=== PATIENT | female | born 1970 | race Caucasian/White ===

== ENCOUNTER 2018-08-11 15:31 | Inpatient (IN) ==
[2018-08-11] MEDS ORDERED: CARDIZEM IV ONE (15:53)
--- NOTE | 2018-08-11 15:54 | PROVIDER DOCUMENTATION ---
HPI-Cardiac General - General Chief Complaint: Palpitations Stated Complaint: ABNORMAL EKG Time Seen by Provider: 08/11/18 15:43 Source: patient, family Allergies/Adverse Reactions: Patient Allergies Allergy/AdvReac Type Severity Reaction Status Date / Time ceftriaxone sodium * Allergy Severe ANAPHYLAXIS Verified 01/19/12 16:14 [From Rocephin] metoclopramide HCl * Allergy Severe Unknown Verified 01/19/12 16:14 [From Reglan] ondansetron HCl * Allergy Severe RASH Verified 01/19/12 16:14 [From Zofran] tetracycline [Tetracycline] Allergy Severe NAUSEA/VOMI Verified 01/19/12 16:14 TING hydroxyzine [From Atarax] Allergy ANAPHYLAXIS Verified 08/11/18 15:54 Home Medications: Home Medication List Medication Instructions Recorded Confirmed Last Taken Type Omeprazole [Prilosec] 40 mg PO DAILY 01/19/12 01/19/12 01/15/12 21:00 History - History of Present Illness-Cardiac Nature of Presenting Problem: was sent from Dr. Ellis office for SVT/Afib prior to arrival. she attributes to having some ingestion, and intermittent heart palpitatin and felt her ears congestion. she was on amoxil, tessalon but no OTC cold medicines. otherwise she has history of grave dz. Review of Systems - Adult - REVIEW OF SYSTEMS - ADULT Constitutional: reports: no symptoms reported Eyes: reports: no symptoms reported Ears, Nose, Mouth & Throat: reports: no symptoms reported Cardiovascular: reports: no symptoms reported Respiratory: reports: no symptoms reported Gastrointestinal: reports: no symptoms reported Genitourinary: reports: no symptoms reported Musculoskeletal: reports: no symptoms reported Integumentary: reports: no symptoms reported Neurological: reports: no symptoms reported Psychiatric: reports: no symptoms reported Endocrine: reports: no symptoms reported Hematologic/Lymphatic: reports: no symptoms reported Allergic/Immunologic: reports: no symptoms reported All Other Systems: Reviewed and Negative Past History - Adult - PAST MEDICAL HISTORY-ADULT Review of Records: reports: Old Records Reviewed, Nursing Assessment Review, Medications Reviewed, Social history reviewed & non-contributory. Major Childhood Illnesses: reports: denies history Cardiovascular: reports: denies history Respiratory: reports: denies history Gastrointestinal: reports: denies history Obstetrical/Gynecological: reports: denies history Genitourinary: reports: denies history Musculoskeletal: reports: denies history Neurological: reports: denies history Endocrine/Immune: reports: denies history Other Conditions: reports: denies history - IMMUNIZATION STATUS Childhood Immunizations: See Nurse Assessment Flu Vaccine: See Nurse Assessment - FAMILY HISTORY Family History: reviewed, not pertinent - SOCIAL HISTORY Smoking: denies Substance Use: none/never Living Situation: family Physical Exam-General - PHYSICAL EXAM-ADULT Initial Vital Signs Reviewed: Yes - CONSTITUTIONAL General Appearance: appears well, alert, no apparent distress - EYES Eyes: PERRL/EOMI, pink conjunctivae - HEAD, EARS, NOSE, MOUTH & THROAT HENMT: normocephalic/atraumatic, moist mucous membranes - NECK Neck: non-tender, full range of motion - RESPIRATORY Respiratory: chest non-tender, lungs clear - CARDIOVASCULAR Cardiovascular: normal peripheral pulses, tachycardia (but stable) - GASTROINTESTINAL (ABDOMEN) Abdominal Exam: normal bowel sounds, non tender, soft - MUSCULOSKELETAL Back Exam: normal inspection, no CVA tenderness Extremity: normal range of motion, non-tender, normal gait. negative: swelling - SKIN Integumentary: normal color, normal turgor, warm/dry - NEUROLOGIC Neurologic: grossly normal, no motor/sensory deficits - PSYCHIATRIC Psych/Mental Status: normal mood/affect, normal thought content, normal thought process, oriented x 3 Progress - PLAN OF CARE/RESULTS Progress/Plan/Lab Results: Vital Signs - 8 hr 08/11/18 15:51 Temperature 98.0 F Pulse Rate 156 H Respiratory Rate 20 Blood Pressure 150/120 O2 Sat by Pulse Oximetry 99 Laboratory Results - last 24 hr 08/11/18 08/11/18 08/11/18 15:45 16:04 16:55 WBC 9.43 RBC 5.00 Hgb 13.1 Hct 39.7 MCV 79.4 L MCH 26.2 L MCHC 33.0 RDW Std Deviation 13.7 Plt Count 153 MPV 12.3 H Immature Gran % (Auto) 0.0 Neut % (Auto) 57.4 Lymph % (Auto) 33.8 Lyon % (Auto) 6.8 Eos % (Auto) 1.9 Baso % (Auto) 0.1 Immature Gran # (Auto) 0.00 Neut # (Auto) 5.41 Lymph # (Auto) 3.19 Lyon # (Auto) 0.64 H Eos # (Auto) 0.18 Baso # (Auto) 0.01 PT 13.2 INR 0.92 PTT (Actin FS) 21.3 L D-Dimer, Quantitative 0.92 H Sodium Potassium Chloride Carbon Dioxide Anion Gap BUN Creatinine Estimated GFR/1.73 m2 BUN/Creatinine Ratio Glucose Calculated Osmolality Calcium Total Bilirubin AST ALT Alkaline Phosphatase Total Protein Albumin Globulin Albumin/Globulin Ratio TSH 08/11/18 08/11/18 16:55 16:55 WBC RBC Hgb Hct MCV MCH MCHC RDW Std Deviation Plt Count MPV Immature Gran % (Auto) Neut % (Auto) Lymph % (Auto) Lyon % (Auto) Eos % (Auto) Baso % (Auto) Immature Gran # (Auto) Neut # (Auto) Lymph # (Auto) Lyon # (Auto) Eos # (Auto) Baso # (Auto) PT INR PTT (Actin FS) D-Dimer, Quantitative Sodium 143 Potassium 3.8 Chloride 106 Carbon Dioxide 25 Anion Gap 12 BUN 14 Creatinine 0.5 Estimated GFR/1.73 m2 > 60 BUN/Creatinine Ratio 28 Glucose 108 H Calculated Osmolality 286 Calcium 8.7 L Total Bilirubin 0.42 AST 15 ALT 18 Alkaline Phosphatase 127 H Total Protein 6.4 Albumin 3.8 Globulin 2.6 Albumin/Globulin Ratio 1.5 TSH 0.01 L Orders Category Date Time Status Admit - [facility] Routine AdmDCTranf 08/11/18 18:24 Active CTA [CT ANGIOGRM PULMONARY ARTERIES] [CT] Stat Exams 08/11/18 18:07 Ordered cxr [CHEST-2 VIEWS] [RAD] Stat Exams 08/11/18 15:54 Completed CBC WITH ELECTRONIC DIFF [HEME] Stat Lab 08/11/18 15:45 Completed COMPREHENSIVE METABOLIC PANEL [CHEM] Stat Lab 08/11/18 16:55 Completed D-DIMER [COAG] Stat Lab 08/11/18 16:55 Completed FREE T3 [HH] Stat Lab 08/11/18 18:29 Received FREE T4 Stat Lab 08/11/18 18:17 Received FREE T4 Stat Lab 08/11/18 18:20 Ordered PROTIME WITH INR [COAG] Stat Lab 08/11/18 16:04 Completed PTT [COAG] Stat Lab 08/11/18 16:04 Completed TSH Stat Lab 08/11/18 16:55 Completed Diltiazem 125 mg/D5w [Cardizem 125 mg/D5w] Med 08/11/18 16:15 Active 125 mg in 125 ml IV As Directed mls/hr Diltiazem [Cardizem] Med 08/11/18 15:53 Discontinued 20 mg IV NOW ONE EKG [EKG] Stat Ther 08/11/18 16:13 Draft Transfer/Admit Order [TRANSFER] Routine Transfer 08/11/18 18:29 Ordered Result Diagrams: 08/11/18 15:45 08/11/18 16:55 - REASSESSMENT Reassessment #1 Time Reassessed: 16:53 (s/p cardizem, and drip. slight improving. will admit to ED. ) - CONSULTS/PCP/HOSPITALIST Notification #1 *Consult/PCP/Hospitalist*: Dr. Ellis Time Discussed: 16:53 Consult Disposition: Admit Departure - Departure Date of Disposition Decision: 08/11/18 Time of Disposition Decision: 16:19 DIAGNOSIS: Atrial fibrillation with RVR, Graves' disease, Elevated d-dimer Disposition: ADMITTED INPATIENT 09 Certified Medical Emergency: Emergent Condition: Stable Referrals and Follow-Ups: Elodia Ellis MD [Primary Care Provider] - - Critical Care Note This patient required my direct & personal management of CC.: No Attestation - Physician/ ROSE Attestation The physician spent face to face time with patient:: Yes Advanced Practice Provider documentation review:: Supervising physician onsite and consulted in the evaluation and care of this patient. The physician did have a face to face encounter with the patient.
[2018-08-11] MEDS: CARDIZEM 125 MG/D5W 125 MG/125 ML IVPB IV SCH (16:20)
--- NOTE | 2018-08-11 16:27 | EKG Report ---
Test Performed on : 08/11/2018 3:43:08 PM Test Reason : tachy Blood Pressure : / mmHG Vent. Rate : 168 BPM Atrial Rate : 227 BPM P-R Int : 000 ms QRS Dur : 074 ms QT Int : 292 ms P-R-T Axes : 000 -11 015 degrees QTc Int : 488 ms Atrial fibrillation. with rapid ventricular response. Abnormal ECG No previous ECGs available Unconfirmed Result
[2018-08-11 16:35] LABS: INR 0.92; PROTIME 13.2 Seconds (11.0-16.0)
[2018-08-11 16:36] LABS: PTT 21.3 Seconds (22.3-41.8)
[2018-08-11 17:11] LABS: BASO# 0.01 X1000 (0.0-0.2); BASO% 0.1 % (0.0-0.8); EOS# 0.18 X1000 (0.0-0.7); EOS% 1.9 % (0.0-10.0); HEMATOCRIT 39.7 % (37.0-47.0); HEMOGLOBIN 13.1 g/dL (12.0-16.0); LYMPH# 3.19 X1000 (1.2-3.4); LYMPH% 33.8 % (20.5-51.1); MCH 26.2 PG (27-31); MCV 79.4 FL (81-99); MONO# 0.64 X1000 (0.11-0.59); MONO% 6.8 % (1.7-9.3); MPV 12.3 FL (7.4-10.4); NEUT# 5.41 X1000 (1.4-6.5); NEUT% 57.4 % (42.2-75.2); PLT 153 X1000 (130-400); RDW 13.7 % (11.5-14.5); WBC 9.43 X1000 (4.8-10.8)
[2018-08-11 17:26] LABS: AGAP 12; ALB/GLOB RATIO 1.5; ALBUMIN 3.8 g/dL (3.5-5.0); ALKALINE PHOSPHATASE 127 U/L (32-104); BUN 14 mg/dL (8-22); CALCIUM 8.7 mg/dL (8.8-10.2); CHLORIDE 106 mmol/L (98-107); COSMO 286; CREATININE 0.5 mg/dL (0.5-0.9); ESTIMATED GFR > 60; GLUCOSE 108 mg/dL (70-104); GOT 15 U/L (10-30); GPT 18 U/L (10-36); POTASSIUM 3.8 mmol/L (3.5-5.1); SODIUM 143 mmol/L (136-145); TCO2 25 mmol/L (25-35); TOTAL BILIRUBIN 0.42 mg/dL (0.20-1.00); TOTAL PROTEIN 6.4 g/dL (6.3-8.3)
--- NOTE | 2018-08-11 17:34 | Diag Imaging Result Doc PS360 ---
EXAM: CHEST-2 VIEWS 08/11/2018 HISTORY: heart palpitation TECHNIQUE: Two views COMMENT: There is no evidence of acute cardiac or pulmonary disease. There are no previous studies. There is some accentuation of kyphosis of the lower thoracic spine. IMPRESSION: No evidence of acute disease. Electronically signed by Josh Berry 08/11/2018 5:31 PM
[2018-08-11] MEDS ORDERED: LANOXIN IV ONE ×2 (19:29→20:25)
[2018-08-11] MEDS ORDERED: ZOFRAN IV PRN (19:50)
[2018-08-11] MEDS ORDERED: NS 1,000 ML IV SCH (20:00)
[2018-08-11] MEDS ORDERED: LOVENOX SUBQ SCH (20:00)
[2018-08-11] MEDS ORDERED: SODIUM CHLORIDE 0.9% INJ SCH (20:00)
[2018-08-11] MEDS ORDERED: PEPCID IV SCH (20:00)
--- NOTE | 2018-08-11 20:01 | Diag Imaging Result Doc PS360 ---
EXAM: CT ANGIOGRM PULMONARY ARTERIES 08/11/2018 HISTORY: pe TECHNIQUE: This exam was performed using automated exposure control, adjustment of mA or kV according to patient size, and/or use of iterative reconstruction technique. COMMENT: 3-D MIPS were performed. There are no previous studies. There are no filling defects in the pulmonary arteries. The thoracic aorta is normal in caliber and there is no evidence of dissection. There are small pleural effusions bilaterally. There is retained thymic tissue. There are some prominent aorticopulmonary window nodes. There is increased interstitial markings particularly in the apices and bases, and there are some patchy groundglass opacities present most notably in the right middle lobe around image 86.The regional skeleton is intact. There are splenules in the splenic hilus. There is an apparent small hiatal hernia. IMPRESSION: No evidence of pulmonary emboli. Pulmonary edema and/or pneumonitis. Electronically signed by Josh Brery 08/11/2018 7:58 PM
[2018-08-11] MEDS ORDERED: LOPRESSOR PO SCH (21:00)
[2018-08-11] MEDS ORDERED: METHADONE PO ONE (21:29)
--- NOTE | 2018-08-11 21:48 | HISTORY AND PHYSICAL ---
CHIEF COMPLAINT: Palpitations, chest pressure for the last 1 day. HISTORY OF PRESENT ILLNESS: She is a 48-year-old white female who basically came in with palpitations, chest pain, neck is hurting for the last day. Patient was not seen in my office since 2015. Patient was found to have rapid SVT. I tried modified Valsalva maneuver twice, not able to break through. Patient appears to be little bit short of breath. Transferred to the emergency room. In the ER, patient was given a Cardizem drip. Further workup revealed she was hyperthyroid. The cause of atrial fibrillation was due to hypothyroid, and basically rule out valvular heart disease. Positive D-dimer. CT pulmonary angiogram was negative. Discussed the plan with family at bedside. [facility]. PAST MEDICAL HISTORY: 1. Metabolic syndrome. 2. Reflux disease. 3. History of hyperthyroidism. Normal radioactive uptake, 12/13/2015. Patient has Vincent toxicosis, elevated thyroid peroxidase antibodies, not taking any medications at this time. PAST SURGICAL HISTORY: 1. Appendectomy. 2. Hysterectomy. 3. . MEDICINES: 1. Prilosec. 2. Discontinued losartan. ALLERGIES: Hydroxyzine, Reglan, Rocephin, tetracycline. SOCIAL HISTORY: , 1 child, living in [place]. No smoking. No alcohol. FAMILY HISTORY: Father was 72 years old and with congestive heart failure. Mom is healthy. REVIEW OF SYSTEMS: HEENT: No headache, no vision problem, no earache, no sore throat. Neck: No goiter, no lymphadenopathy, no bruit. Cardiopulmonary: Chest pain. No shortness of breath, PND, orthopnea. No lumps in the breast. GI: No nausea, vomiting, abdominal pain. Extremities: No swelling of feet. No joint pain. Neurologic: No focal symptoms or weakness. PHYSICAL EXAMINATION: VITAL SIGNS: The patient is tachycardic, hypertensive, 93%. HEENT: Within normal limits. No goiter. CHEST: Bilateral air entry. HEART: Sounds are tachycardic. ABDOMEN: Belly is soft, nontender. Good bowel sounds. EXTREMITIES: No peripheral edema, cyanosis. NEUROLOGIC: No obvious neurological deficits. INVESTIGATIONS: CBC: White cell count 9.4, hematocrit 39, platelets 153,000. PT 13, INR 0.9, PTT 21. D-dimer slightly positive. SMA 7 is normal. T4 is high. TSH is low. Cardiac enzymes are pending. EKG: Atrial fibrillation. CT pulmonary angiogram: No evidence of PE. Chest x-ray stable. ASSESSMENT AND PLAN: A 48-year-old white female admitted to the hospital with: 1. New onset of atrial fibrillation due to hypothyroidism. Will also get echocardiography and follow up on cardiac enzymes. D-dimer is positive. CT pulmonary angiogram is negative. 2. Hypothyroidism. Normal radioactive iodine. Not taking any medicine. Her TPO antibodies are high and T4 was high. Repeat TPO antibodies and thyroid receptor antibodies. Will continue intravenous Cardizem, digitalis, metoprolol, and after these tests, patient will be started on methimazole, and will follow up. 3. Deep venous thrombosis and gastrointestinal prophylaxis with Lovenox and Pepcid respectively. cc: Fadi Ellis MD
[2018-08-11] MEDS: LOVENOX SUBQ SCH (22:06)
[2018-08-11] MEDS: PEPCID IV SCH (22:06)
[2018-08-11] MEDS: SODIUM CHLORIDE 0.9% INJ SCH (22:06)
[2018-08-12] MEDS: CARDIZEM 125 MG/D5W 125 MG/125 ML IVPB IV SCH ×2 (00:23→09:34)
[2018-08-12] MEDS ORDERED: LANOXIN IV ONE ×2 (01:30→02:30)
[2018-08-12] MEDS ORDERED: SODIUM CHLORIDE 0.9% INJ PRN (03:33)
[2018-08-12] MEDS ORDERED: PHENERGAN IV PRN (03:33)
[2018-08-12] MEDS: TYLENOL PO PRN (03:48)
[2018-08-12] MEDS ORDERED: TAPAZOLE PO ONE (07:48)
[2018-08-12] MEDS ORDERED: TOPROL XL PO ONE (07:49)
[2018-08-12] MEDS: PEPCID IV SCH ×2 (08:31→21:15)
[2018-08-12] MEDS: SODIUM CHLORIDE 0.9% INJ SCH ×2 (08:32→21:15)
[2018-08-12] MEDS ORDERED: METHADONE PO SCH (09:00)
--- NOTE | 2018-08-12 19:54 | PROGRESS NOTE ---
DATE: 08/12/2018 SUBJECTIVE: The patient is still in atrial fibrillation, exhausted. No chest pain, shortness of breath. She has monitored atrial fibrillation. OBJECTIVE: Vital Signs: Temperature is 98, vitals are stable. HEENT exam: Within normal limits. Chest: Clear, irregular heart sounds. Abdomen: Belly soft, nontender. Good bowel sounds. Neurologic: No neurological deficits. LABS: CBC: White cell count 9.4, hematocrit 39, platelets 153. PT 13. INR 0.92, PTT 21. D- dimer 0.92. Cardiac enzymes were negative. ProBNP 1300. Free T3 is high. T4 is high. TSH is low. It is level 1.2. Thyroid peroxidase antibody is positive. ASSESSMENT AND PLAN: 1. Atrial fibrillation due to hyperthyroidism due to Vincent toxicosis. Positive thyroid peroxidase antibodies. Previous thyroid uptake scan is negative. Pending thyrotropin receptor antibody. Clinically, no Graves disease noted. Plan of care as follows: Cardizem drip slowly wean off. Continue on beta blockers and Tapazole. 2. The patient is at low risk for having strokes. 3. Deep venous thrombosis and gastrointestinal prophylaxis as per order sheet. 4. Will follow up. LEVEL OF DOCUMENTATION: 25 minutes. cc: Fadi Ellis MD
[2018-08-12] MEDS: LOVENOX SUBQ SCH (21:15)
[2018-08-12] MEDS: CARDIZEM PO SCH (21:16)
[2018-08-12] MEDS: TOPROL XL PO SCH (21:16)
--- NOTE | 2018-08-12 22:54 | ECHO REPORT ---
ORDER DATE: 08/11/2018 MEASUREMENTS: Septal thickness 1.1, left ventricular internal diameter diastole 4.7, posterior wall thickness 1.1, left ventricular internal diameter in systole 3.0, left atrium 4.3, aortic root 3.0. SUMMARY: 1. Adequate quality study. 2. Aortic valve is trileaflet and opens normally on 2-dimensional images. Peak gradient across aortic valve is 10 mmHg. Mitral, tricuspid, and pulmonic valves are without evidence of structural abnormality. There is mild mitral regurgitation and mild tricuspid regurgitation. Estimated systolic PA pressure by Doppler is 35 mmHg. Aortic root is normal in size. 3. Normal left ventricular dimensions demonstrated. Estimated left ventricular ejection fraction appears to be at least 65%. No regional wall motion abnormalities are evident. Left atrium is mildly enlarged. The right atrium is borderline enlarged. Right ventricle is normal in size with normal right ventricular systolic function. 4. No pericardial effusion. 5. Appearance of inferior vena cava suggests normal central venous pressure. CONCLUSIONS: 1. Mild mitral regurgitation. 2. Mild tricuspid regurgitation with estimated systolic PA pressure 35 mmHg. 3. Estimated left ejection fraction at least 65%. 4. Mild left atrial enlargement and borderline right atrial enlargement. cc: MD Fadi Bean MD
[2018-08-13] MEDS: TYLENOL PO PRN (00:09)
[2018-08-13] MEDS: CARDIZEM PO SCH (05:10)
[2018-08-13] MEDS: TOPROL XL PO SCH ×3 (07:31→20:56)
[2018-08-13] MEDS: SODIUM CHLORIDE 0.9% INJ SCH (07:33)
[2018-08-13] MEDS: PEPCID IV SCH (07:33)
[2018-08-13] MEDS: PRILOSEC PO PRN ×2 (08:24→21:01)
[2018-08-13] MEDS ORDERED: TAPAZOLE PO SCH (09:00)
--- NOTE | 2018-08-13 09:39 | PROGRESS NOTE ---
DATE: 08/13/2018 48-year-old, white female patient admitted with atrial fibrillation with rapid VR. The patient also had some chest pain and shortness of breath. Elevated D-dimer. Her echocardiogram revealed mild mitral regurgitation, mild tricuspid regurgitation, mild left atrial enlargement, and borderline right atrial enlargement. The patient was on Cardizem drip. Clinically patient is doing better. She is going to start her Tapazole today. The patient is on beta geno. OBJECTIVE: Vital Signs: Noted. Neck: Is supple. No JVD. Lungs: Bilateral good air entry present. CVS: S1 and S2 heard. Abdomen: Soft, globular. Bowel sounds present. SENIOR STATISTICAL PROGRAMMER: Alert, awake able to move all 4 limbs. Her proBNP was elevated, free T3 was 8.2, free T4 2.79, TSH 0.01. The patient's problem includes hyperthyroidism, atrial fibrillation with rapid ventricular response, elevated D-dimer but pulmonary embolism ruled out. I am going to transfer patient to telemetry bed. Continue rest of the treatment. Close observation. Thyroid peroxidase antibody was more than 600. I am going to check appropriate labs. Continue current treatment. If clinical condition permits, will plan discharging patient home tomorrow. cc: MD Fadi Hawk MD
[2018-08-13] MEDS: TAPAZOLE PO SCH (20:55)
[2018-08-13] MEDS: LOVENOX SUBQ SCH (20:56)
[2018-08-14] MEDS: TOPROL XL PO SCH ×2 (09:41→20:47)
[2018-08-14] MEDS: TAPAZOLE PO SCH ×2 (09:42→20:47)
--- NOTE | 2018-08-14 10:25 | PROGRESS NOTE ---
DATE: 08/14/2018 SUBJECTIVE: Ms. Rushing is doing fair. The patient denied any chest pain. No fever or chills. The patient was monitoring her heart rate. At rest, her heart rate was staying around 150. With exertion, it was going up to 180. The patient is eager to go home. I started her on beta geno. The patient is on Tapazole. Her thyroperoxidase antibody titer was more than 600. TSH receptor antibodies were more than 4.57. Patient admitted with atrial fibrillation with rapid VR. She is off the Cardizem drip. OBJECTIVE: Vital Signs: Noted. Neck: Supple. No JVD. Lungs: Bilateral good air entry present. CVS: S1 and S2 heard. Abdomen: Soft. No distention. Bowel sounds present. COMMUNICATIONS WRITER: Alert, awake, able to move all 4 limbs. ASSESSMENT AND DISCUSSION: The patient's problems include tachyarrhythmia, hyperthyroidism. The patient does have antibody against. TSH receptor could be due to Graves' disease. PLAN: I advised the patient to be monitored another 24 hours. She is high risk to develop tachyarrhythmia and consequences. Her echocardiogram results were reviewed. Will continue beta geno and Tapazole. cc: MD Fadi Hawk MD
[2018-08-14] MEDS: LOVENOX SUBQ SCH (20:47)
[2018-08-14] MEDS: PRILOSEC PO PRN (20:57)
[2018-08-15] MEDS ORDERED: CARDIZEM PO SCH ×2 (09:00→09:30)
[2018-08-15] MEDS: TOPROL XL PO SCH ×2 (09:11→20:20)
[2018-08-15] MEDS: TAPAZOLE PO SCH ×2 (09:11→20:20)
--- NOTE | 2018-08-15 11:20 | EKG Report ---
Test Performed on : 08/15/2018 11:15:58 AM Test Reason : afib Blood Pressure : / mmHG Vent. Rate : 148 BPM Atrial Rate : 166 BPM P-R Int : 000 ms QRS Dur : 074 ms QT Int : 290 ms P-R-T Axes : 000 -27 009 degrees QTc Int : 455 ms Atrial fibrillation. with rapid ventricular response. Abnormal ECG When compared with ECG of 11-AUG-2018 15:43, (Unconfirmed) No significant change was found Confirmed by Sarkis Pierre MD ([id number]) on 08/15/2018 8:52:19 PM
[2018-08-15 12:08] LABS: AGAP 11; BUN 14 mg/dL (8-22); CALCIUM 9.5 mg/dL (8.8-10.2); CHLORIDE 104 mmol/L (98-107); COSMO 281; CREATININE 0.5 mg/dL (0.5-0.9); ESTIMATED GFR > 60; GLUCOSE 126 mg/dL (70-104); MAGNESIUM 1.9 mg/dL (1.5-2.7); POTASSIUM 4.3 mmol/L (3.5-5.1); SODIUM 140 mmol/L (136-145); TCO2 25 mmol/L (25-35)
[2018-08-15 12:21] LABS: FREE T4 2.16 ng/dL (0.93-1.70); TSH 0.01 uIUmL (0.27-4.20)
--- NOTE | 2018-08-15 14:42 | CONSULTATION ---
DATE OF CONSULTATION: 08/15/2018 IMPRESSIONS: 1. Atrial fibrillation rapid ventricular rate, probably fairly recent, new onset. 2. Hyperthyroidism. 3. Obesity, overweight. RECOMMENDATIONS: 1. Augment metoprolol to 50 mg q.6 to q.8. 2. There is some potential risk for thromboembolism with atrial fibrillation in the setting of hyperthyroidism. Favor anticoagulation. This was discussed with the patient. 3. If atrial fibrillation persists after patient ultimately becomes euthyroid, would consider cardioversion at that point. HISTORY: This 48-year-old white female with past history of thyroid disorder was recently admitted with atrial fibrillation with rapid ventricular rate. She has had issues with hyperthyroidism dating back to 2016 and was treated with thyroid suppressing medications for a period of time (6 months). She has noted in the past month or so a tendency for some tremor. She also had in the past few weeks some tachy palpitations associated with some indigestion-like chest discomfort. She started having more palpitations and was admitted with newly discovered atrial fibrillation with rapid ventricular rate last . She has been started on metoprolol and low-dose diltiazem was subsequently added. She has continued to have difficulty in achieving adequate rate control with her atrial fibrillation. Chest symptoms have resolved. PAST MEDICAL HISTORY: 1. Hyperthyroidism. 2. Gastroesophageal reflux disease. 3. Status post appendectomy, hysterectomy, and previous section. ALLERGIES: She has multiple drug allergies/intolerances as listed. MEDICATIONS: As listed. 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 She does not smoke or use alcohol. FAMILY HISTORY: Negative for premature coronary disease. REVIEW OF SYSTEMS: Pulmonary: Negative. Gastrointestinal: Noteworthy for gastroesophageal reflux disease but is otherwise negative. Constitutional: Negative. Remainder of review of systems negative/noncontributory with 14 total systems reviewed. PHYSICAL EXAMINATION: General: Reveals an overweight, adult female in no distress. Vital signs: Blood pressure 119/80, heart rate 148 beats per minute with ECG monitor showing atrial fibrillation with rapid ventricular rate. Weight 200 pounds. HEENT: Extraocular muscles appear intact. Mucous membranes are moist. Neck: Supple without jugular venous distention. There are no carotid bruits. Chest: Clear to auscultation bilaterally. Cardiac Exam: Reveals an irregular rate and rhythm without appreciable murmur or gallop. Abdomen: Soft. Bowel sounds are normal. Extremities: Without edema. Neurologic: Reveals her to be alert and fully oriented. Speech is fluent. She moves all 4 extremities equally well. She is hyperreflexic. Skin: Warm and dry. Psychiatric: Exam reveals her mood to be appropriate. DIAGNOSTIC DATA: A 12 lead EKG demonstrates atrial fibrillation with rapid ventricular rate. LABORATORY DATA: Includes sodium 143, potassium 3.8, chloride 106, carbon dioxide 25, BUN 14, creatinine 0.5, glucose 108. CPK 37. TSH 0.01, free T4 2.79, T3 8.2. White blood cell count 9.43, hematocrit 39.7, hemoglobin 13.1, platelet count 153,000. cc: MD Fadi Bean MD
[2018-08-15] MEDS ORDERED: TOPROL XL PO SCH ×2 (17:00)
[2018-08-15] MEDS: XARELTO PO SCH (17:55)
[2018-08-15] MEDS ORDERED: TOPROL XL PO ONE (19:44)
--- NOTE | 2018-08-15 21:26 | PROGRESS NOTE ---
DATE: 08/15/2018 SUBJECTIVE: Interval history was reviewed. Patient off on Cardizem drip. Patient remained rapid atrial fibrillation and family was not happy over the weekend. Continues to have rapid atrial fibrillation. Wants a second opinion with digital business analyst. REVIEW OF SYSTEMS: Cough. EXAMINATION: Temperature is 98.2 degrees, blood pressure 120/80.HEENT: Within normal limits. Neck: Supple. Chest: Bilateral air entry. Irregular heart sounds. Belly: Is soft, nontender. No obvious deficits noted. INVESTIGATIONS: SMA 7 is normal. Free T3 6.5. ASSESSMENT AND PLAN: 1. Atrial fibrillation due to hyperthyroidism. Continue rate control with increasing metoprolol 50 q.6 and unable to tolerate Lanoxin. 2. Atrial fibrillation workup. Normal left ventricular function with echocardiography ruled out for myocardial infarction, ruled out for pulmonary embolism. 3. Hyperthyroidism due to Graves disease antibody. Unable to do radioactive Uptake study. In the meantime continue on methimazole 10 mg p.o. b.i.d. 4. Cardiology consult. Started on Xarelto and gastroesophageal reflux disease on Prilosec and will monitor telemetry this evening. LEVEL OF DOCUMENTATION: 25 minutes. cc: Fadi Ellis MD MTDD
[2018-08-16] MEDS: TOPROL XL PO SCH ×2 (02:39→08:14)
[2018-08-16] MEDS ORDERED: TOPROL XL PO ONE (06:00)
--- NOTE | 2018-08-16 07:19 | EKG Report ---
Test Performed on : 08/16/2018 06:54:12 AM Test Reason : afib with rvr Blood Pressure : / mmHG Vent. Rate : 142 BPM Atrial Rate : 197 BPM P-R Int : 000 ms QRS Dur : 074 ms QT Int : 312 ms P-R-T Axes : 000 -18 038 degrees QTc Int : 479 ms Atrial fibrillation. with rapid ventricular response. Abnormal ECG When compared with ECG of 15-AUG-2018 11:15, No significant change was found Confirmed by Sarkis Pierre MD ([id number]) on 08/16/2018 9:23:14 PM
[2018-08-16] MEDS: TAPAZOLE PO SCH ×2 (08:13→20:14)
[2018-08-16] MEDS ORDERED: CARDIZEM PO ONE (08:26)
[2018-08-16] MEDS ORDERED: LOPRESSOR IV PRN (10:49)
[2018-08-16] MEDS: LOPRESSOR PO SCH ×2 (12:40→17:42)
[2018-08-16] MEDS: XARELTO PO SCH (16:55)
[2018-08-16] MEDS: PRILOSEC PO PRN (17:22)
[2018-08-16] MEDS ORDERED: XANAX PO PRN (18:32)
--- NOTE | 2018-08-16 19:05 | PROGRESS NOTE ---
DATE: 08/16/2018 SUBJECTIVE: The patient moved out to [facility], still in atrial fibrillation with rapid ventricular response despite increasing metoprolol, added Cardizem. The patient is a little bit anxious and coughing. Rate is not adequately controlled. EXAMINATION: Vital Signs: Temp is 97, pulse is 100, blood pressure is stable. HEENT: Within normal limits. Neck: Supple. Chest: Clear. Heart: Irregular heart sounds. Abdomen: Belly is soft, nontender. No edema. INVESTIGATIONS: None. ASSESSMENT AND PLAN: 1. Rapid atrial fibrillation due to hyperthyroidism due to thyroid receptor antibody positive. Plan is increase metoprolol 75 q.6h, added Cardizem 120. Moved to [facility]. 2. Stroke prophylaxis due to Xarelto. 3. Will give a low dose of anxiolytic. Continue on Prilosec. 4. Discussed the plan of care with the patient and follow up. LEVEL OF DOCUMENTATION: 25 minutes. cc: Fadi Ellis MD
--- NOTE | 2018-08-16 19:07 | PROGRESS NOTE ---
DATE: 08/16/2018 SUBJECTIVE: Patient feeling better as heart rate has come under better control with increase in metoprolol. She relates mild fatigue, but is otherwise asymptomatic. OBJECTIVE: Vital Signs: Blood pressure 112/75, heart rate ranging anywhere from 90 to 115 beats per minute, with ECG showing atrial fibrillation. Oxygen saturation 99% on room air. Neck: There is no significant jugular venous distention. Chest: Clear to auscultation. Cardiac: Irregular rate and rhythm without appreciable murmur or gallop. There is no evidence of peripheral edema. IMPRESSION: 1. Atrial fibrillation. Heart rate coming under better control. 2. Hyperthyroidism. 3. Obesity. RECOMMENDATIONS: 1. Titrate metoprolol as needed to control heart rate response to atrial fibrillation. She may require further increase in metoprolol tomorrow if heart rate is not optimally controlled. 2. Continue anticoagulation until patient back in sinus rhythm consistently. cc: MD Fadi Bean MD
[2018-08-17] MEDS: LOPRESSOR PO SCH ×2 (00:24→06:07)
[2018-08-17 04:41] VITALS: BP 92/60
--- NOTE | 2018-08-17 08:06 | EKG Report ---
Test Performed on : 08/17/2018 06:28:37 AM Test Reason : afib Blood Pressure : / mmHG Vent. Rate : 113 BPM Atrial Rate : 416 BPM P-R Int : 000 ms QRS Dur : 076 ms QT Int : 344 ms P-R-T Axes : 000 072 066 degrees QTc Int : 471 ms Atrial fibrillation. with rapid ventricular response. Abnormal ECG When compared with ECG of 16-AUG-2018 06:54, No significant change was found Confirmed by Sarkis Pierre MD ([id number]) on 08/17/2018 6:03:18 PM
[2018-08-17] MEDS: TAPAZOLE PO SCH (08:24)
--- NOTE | 2018-08-19 21:01 | DISCHARGE SUMMARY ---
ADMISSION DATE: 08/11/2018 DISCHARGE DATE: 08/17/2018 DISCHARGE DIAGNOSIS: Persistent atrial fibrillation due to hyperthyroidism, due to positive thyroid stimulating receptor antibody as well as antimicrosomal/thyroperoxidase antibodies. SECONDARY DIAGNOSES: 1. Metabolic syndrome. 2. Chronic anxiety. 3. Acid reflux disease. CONSULTS: Anil Cantrell MD BRIEF HISTORY: She is a 48-year-old white female, was not seen in my office since 2016. She was slightly hyperthyroid in 2016 and also has hypertension. Further workup with normal radioactive iodine uptake. She has a positive thyroperoxidase antibodies, more than 600. I did explain during that time she was briefly hyperthyroid, subsequently it will become hypothyroid in the future. She did not have any symptoms for a while. She has not been followed up. She also stopped taking blood pressure medicines. She came in my office with chest pain going to the neck, and EKG showed initially sinus. Subsequently she was in SVT. I tried to do a modified Valsalva maneuver, without any converting into sinus. Subsequently transferred to the emergency room. In the ER the patient had persistent atrial fibrillation, requiring Cardizem drip. Subsequently her free T4 was high, 2.74. TSH was low. She had a positive D-dimer. CT pulmonary angiogram was negative for pulmonary embolism. As a result, I am not able to do the radioactive iodine-123 uptake for the next 6 weeks. HOSPITAL COURSE: She was started on beta-blockers and methimazole. In the ICU, the patient's rate dropped to 88 on IV Cardizem drip. Subsequently transferred to the floor; however, she has persistent atrial fibrillation, 150 and slowly titrated metoprolol. Family wants a second opinion with trailer technician. Dr. Cantrell recommended to continue beta-blockers and methimazole, and then Xarelto for at least a month, even though risk is very low. The patient had been taking metoprolol 300 mg per day in divided doses. At the time of discharge the patient is stable. Weight is 194 pounds. Heart rate is 90. LABORATORY DATA: CBC: White cell count 9.4, hematocrit 39.7, platelets 153,000. PT 13.2, INR 0.92. D-dimer 0.92. Sodium 140, potassium 4.3, chloride 104, BUN 14, creatinine 0.5, glucose 126, magnesium 1.9. Serial cardiac enzymes were negative. Free T4 repeat 2.16, free T3 was 6.5, base level 1.2. Thyroperoxidase antibody more than 600. TSH receptor antibody is also positive, 4.57. DIAGNOSTIC DATA: Echocardiography findings: Mild mitral regurgitation, mild TR. Estimated EF 65%. CT pulmonary angiogram: Small hiatal hernia. No PE. DISCHARGE INSTRUCTIONS: 1. Methimazole 10 mg p.o. b.i.d., metoprolol 100 t.i.d., Xarelto 20 with supper, Prilosec 40 mg daily. 2. Follow up in my office next week. We will arrange outpatient Endocrinology appointment. cc: MD Anil Fields MD
== END 2018-08-17 09:35 | disposition home or self-care (01) | DRG 310 ==
LOC: ED 15:31 → EDIPHOLD 18:59 → ICU 22:36 → 4N 08-13 16:46 → 3S 08-16 11:42
PROVIDERS: ADMIT Internal Medicine; ATTEND Internal Medicine
CPT/HCPCS: 71020; 71046; 71275; 80048; 80053; 80162; 82550; 83519; 83520; 83735; 83880; 84439; 84443; 84481; 84484; 85025; 85379; 85610; 85730; 86376; 93005; 93010; 93306; 96365; 96366; 96372; 96375; 99285; 99291; A9270; J1160; J1650; J2550; Q9967; S0028